=== PATIENT | female | born 1935 ===

== ENCOUNTER 2016-07-09 17:15 | Emergency (ER) | payer MEDICARE, OTHER ==
[2016-07-09 17:21] VITALS: BP 161/56; PULSE 73; RESP 14; TEMP 98; O2SAT 97
[2016-07-09] MEDS ORDERED: Acetaminophen-Codeine 300/30 mg Tab PO STA (18:40)
[2016-07-09] MEDS ORDERED: Acetaminophen-Codeine 300/30 mg Tab ONE (18:45)
[2016-07-09 19:18] LABS: ALB/GLOB RATIO 1.3 (1.0-2.1); ALKALINE PHOSPHATASE 78 U/L (38-126); ALT/SGPT 25 U/L (9-52); AST/SGOT 32 U/L (14-36); BILIRUBIN,TOTAL 0.5 mg/dl (0.2-1.3); BLOOD UREA NITROGEN 23 mg/dl (7-17); CALCIUM 10.7 mg/dL (8.4-10.2); CARBON DIOXIDE 27 mmol/L (22-30); CHLORIDE 105 mmol/L (98-107); GFR AFRICAN-AMERICAN > 60; GLUCOSE,RANDOM 111 mg/dL (65-105); POTASSIUM 4.5 MMOL/L (3.6-5.0); SODIUM 145 mmol/l (132-148); TOTAL PROTEIN 7.5 G/DL (6.3-8.2)
--- NOTE | 2016-07-09 19:23 | ED PDOC ---
Upper Extremity Pain/Injury Time Seen by Provider: 07/09/16 17:39 Chief Complaint (Nursing): Upper Extremity Problem/Injury Chief Complaint (Provider): Left shoulder pain since yesterday History Per: Patient, Family History/Exam Limitations: language barrier (Tile Picker used ) Quality: "Pain" Severity: Moderate Pain Scale Rating Of: 5 Additional Complaint(s): According to daughter mother has been having neck pain in the past but began having left shoulder pain yesterday. They called patient doctor and he prescribed NSAID and cream. Mother was in more pain today which prompted visit. Daughter states she has notice abnormal shoulder swelling/anatomy in the past. Unclear if pain is new or recurrent. PT with history of dementia. Past Medical History Reviewed: Historical Data, Nursing Documentation, Vital Signs Vital Signs: Last Vital Signs Temp 98.0 F 07/09/16 17:18 Pulse 73 07/09/16 17:18 Resp 14 07/09/16 17:18 BP 161/56 H 07/09/16 17:18 Pulse Ox 97 07/09/16 17:18 - Medical History PMH: Alzheimer's Disease, Arthritis, Osteoporosis - Surgical History Surgical History: No Surg Hx - Family History Family History: States: Unknown Family Hx - Living Arrangements Living Arrangements: With Family - Social History Current smoker - smoking cessation education provided: No Alcohol: None Drugs: Denies - Home Medications Home Medications: Ambulatory Orders Medication Instructions Recorded Acetaminophen with Codeine 1 tab PO Q6H PRN #15 tab 07/09/16 [Tylenol with Codeine No. 3 300 mg-30 mg] Baclofen [Lioresal] 1 tab PO BID 07/09/16 Divalproex Sodium [Divalproex 1 tab PO DAILY 07/09/16 Sodium] Donepezil HCl [Aricept] 1 tab PO DAILY 07/09/16 Escitalopram [Lexapro] 1 tab PO DAILY 07/09/16 Nabumetone [Relafen] 1 tab PO DAILY 07/09/16 Omeprazole [Omeprazole] 1 tab PO DAILY 07/09/16 - Allergies Allergies/Adverse Reactions: Allergies Allergy/AdvReac Type Severity Reaction Status Date / Time aspirin Allergy RASH Verified 07/09/16 17:18 Penicillins Allergy RASH Verified 07/09/16 17:18 Review of Systems ROS Statement: Except As Marked, All Systems Reviewed And Found Negative Cardiovascular: Negative for: Chest Pain Respiratory: Negative for: Cough Musculoskeletal: Positive for: Shoulder Pain (Left ) Physical Exam - Reviewed Nursing Documentation Reviewed: Yes Vital Signs Reviewed: Yes - Physical Exam Appears: Positive for: Well, Non-toxic, No Acute Distress Head Exam: Positive for: ATRAUMATIC, NORMAL INSPECTION, NORMOCEPHALIC Skin: Positive for: Normal Color, Warm, DRY Eye Exam: Positive for: Normal appearance ENT: Positive for: Normal ENT Inspection Neck: Positive for: Normal, Painless ROM Cardiovascular/Chest: Positive for: Regular Rate, Rhythm Respiratory: Positive for: Normal Breath Sounds. Negative for: Accessory Muscle Use Back: Positive for: Normal Inspection Extremity: Positive for: Tenderness (Posterior to clavicle, (+) soft tissue swelling/mass ), Swelling. Negative for: Normal ROM (Decreased in the left shoulder due to pain ), Deformity Neurologic/Psych: Positive for: Alert, Oriented - Laboratory Results Result Diagrams: 07/09/16 19:04 07/09/16 19:04 - ECG O2 Sat by Pulse Oximetry: 97 Pulse Ox Interpretation: Normal Medical Decision Making Medical Decision Making: Abnormal left shoulder x-ray. ? old AC joint injury Discussed with patient and mother. Discussed follow-up with orthopedics. Pt feels much better on re-evaluation. Case discussed with Dr. Zapata. Disposition - Clinical Impression Clinical Impression: Left shoulder pain - Patient ED Disposition Is Patient to be Admitted: No Counseled Patient/Family Regarding: Diagnosis, Need For Followup, Rx Given - Disposition Referrals: [facility] [Outside] Disposition: Routine/Home Disposition Time: 21:55 Condition: GOOD Prescriptions: Acetaminophen with Codeine [Tylenol with Codeine No. 3 300 mg-30 mg] 1 tab PO Q6H PRN #15 tab PRN Reason: Pain, Severe (8-10) Instructions: Shoulder Pain (ED) Print Language: KINYARWANDA
[2016-07-09 19:35] LABS: HEMATOCRIT 42.5 % (34.0-47.0); MEAN CELL VOLUME 95.7 fl (81.0-99.0); MEAN CORPUSCULAR HEMOGLOBIN 31.3 pg (27.0-31.0); MEAN CORPUSCULAR HGB CONC 32.8 g/dL (33.0-37.0); RED CELL DISTRIBUTION WIDTH 16.1 % (11.5-14.5); WHITE BLOOD COUNT 6.7 K/uL (4.8-10.8)
--- NOTE | 2016-07-10 11:21 | CARD ---
APPROVED REPORT EKG Measurement Heart [id number] <Conclusion> Sinus rhythm with premature supraventricular complexes Otherwise normal ECG
--- NOTE | 2016-07-10 14:54 | RAD ---
HISTORY: left shoulder pain COMPARISON: No prior. TECHNIQUE: Chest PA and lateral FINDINGS: LUNGS: No active pulmonary disease. PLEURA: No significant pleural effusion identified. No pneumothorax apparent. CARDIOVASCULAR: Normal. OSSEOUS STRUCTURES: No significant abnormalities. VISUALIZED UPPER ABDOMEN: Normal. OTHER FINDINGS: None. IMPRESSION: No active disease.
--- NOTE | 2016-07-10 14:57 | RAD ---
PROCEDURE: Radiographs of the Left Shoulder HISTORY: left shoudler pain COMPARISON: No prior. FINDINGS: BONES: No acute fracture. JOINTS: Glenohumeral articulation appears unremarkable. There is deformity at the acromioclavicular articulation which may be arising from the distal clavicle or acromion. The articulation is poorly delineated due to hypertrophic bone projecting over the articulation. Large bony spur extends inferiorly from the region of the acromioclavicular articulation. There is a bony spur along the inferior aspect of the acromion. SOFT TISSUES: Normal. OTHER FINDINGS: None. IMPRESSION: Possible posttraumatic deformity at acromioclavicular articulation. Articulation is obscured by hypertrophic bone. No acute fracture. Glenohumeral articulation unremarkable.
== END 2016-07-09 22:22 | disposition home or self-care (01) ==
LOC: H.ER 17:15
DX: M25.512 Pain in left shoulder (principal)